=== PATIENT | female | born 1965 | race Caucasian/White ===

== ENCOUNTER 2017-08-24 11:38 | Emergency (ER) | payer OTHER ==
[~2017-08-24] VITALS: Ht 170.2 cm; Wt 98.4 kg
--- OUTSIDE RECORDS SUMMARY | 2017-08-24 11:41 | XMS REPORT ---
[facility] Address Unknown Phone Unavailable Care Team Providers Care Director Biostatistics Name Role Phone Unavailable Unavailable Problems This patient has no known problems. Allergies, Adverse Reactions, Alerts This patient has no known allergies or adverse reactions. Medications This patient has no known medications. Encounters Start Date/Time End Date/Time Encounter Type Admission Type Attending [facility] Care Department Encounter ID 2017-10-04 00:00:00 2017-10-04 00:00:00 Outpatient [facility] [id number] 2017-07-20 08:43:25 2017-07-20 08:43:25 Outpatient [facility] [id number] 2017-07-17 00:00:00 2017-07-17 00:00:00 Outpatient [facility] [id number] 2017-07-16 11:21:32 2017-07-16 11:21:32 Outpatient [facility] [id number] 2017-07-16 09:39:09 2017-07-16 09:39:09 Outpatient [facility] [id number] 2017-07-15 13:46:27 2017-07-15 13:46:27 Outpatient [facility] [id number] 2017-07-15 09:20:00 2017-07-15 09:20:00 Emergency [facility] [id number] 2017-07-15 00:00:00 2017-07-15 00:00:00 Outpatient [facility] [id number] 2017-07-01 13:26:56 2017-07-01 13:26:56 Outpatient [facility] [id number] 2017-06-21 08:04:38 2017-06-21 08:04:38 Outpatient [facility] [id number] 2017-04-16 09:59:08 2017-04-16 09:59:08 Outpatient [facility] [id number] 2017-04-15 07:48:39 2017-04-15 07:48:39 Outpatient [facility] [id number] 2017-04-09 08:21:44 2017-04-09 08:21:44 Outpatient [facility] [id number] 2017-03-18 12:50:01 2017-03-18 12:50:01 Outpatient [facility] [id number] 2017-03-15 13:09:14 2017-03-15 13:09:14 Outpatient [facility] [id number] 2017-03-15 08:17:08 2017-03-15 08:17:08 Outpatient [facility] [id number] 2017-02-18 14:00:30 2017-02-18 14:00:30 Outpatient [facility] [id number] 2017-02-18 09:17:21 2017-02-18 09:17:21 Outpatient [facility] [id number] 2017-02-15 00:00:00 2017-02-15 00:00:00 Outpatient [facility] [id number] 2017-02-08 00:00:00 2017-02-08 00:00:00 Outpatient [facility] [id number] 2017-02-04 00:00:00 2017-02-04 00:00:00 Outpatient [facility] [id number] 2017-01-18 00:00:00 2017-01-18 00:00:00 Outpatient [facility] [id number] 2017-01-14 00:00:00 2017-01-14 00:00:00 Outpatient [facility] [id number] 2017-01-11 08:02:41 2017-01-11 08:02:41 Outpatient [facility] [id number] 2017-01-02 23:08:33 2017-01-02 23:08:33 Emergency [facility] [id number] 2017-01-02 22:41:50 2017-01-02 22:41:50 Emergency [facility] [id number] 2017-01-02 19:36:14 2017-01-02 19:36:14 Emergency [facility] [id number] 2017-01-02 15:09:40 2017-01-02 15:09:40 Emergency [facility] [id number] 2016-12-14 10:30:34 2016-12-14 10:30:34 Outpatient [facility] [id number] 2016-11-16 10:18:28 2016-11-16 10:18:28 Outpatient [facility] [id number] 2016-11-16 08:21:07 2016-11-16 08:21:07 Outpatient [facility] [id number] 2016-10-16 14:07:08 2016-10-16 14:07:08 Outpatient [facility] [id number]
[2017-08-24] MEDS ORDERED: SODIUM CHLORIDE 0.9% 1000ML 1,000 ML IV STA (11:48)
[2017-08-24] MEDS ORDERED: ONDANSETRON HCL INJ 2 MG/ML VIAL IV STA (11:48)
[2017-08-24] MEDS ORDERED: DIAZEPAM INJ 5 MG/ML 2 ML IV ONE (12:00)
[2017-08-24] MEDS ORDERED: MORPHINE SULFATE 2 MG/ML SYR IV STA (12:14)
[2017-08-24 12:18] LABS: BASOPHILS % 0.6 % (0.0-1.0); EOSINOPHILS # (AUTO) 0.1 (0.0-0.4); EOSINOPHILS % 0.8 % (0.0-6.0); HEMATOCRIT 41.2 % (34.2-44.1); LYMPHOCYTES % 15.4 % (18.0-39.1); MEAN CORPUSCULAR HEMOGLOBIN 33.3 pg (28-32); MEAN CORPUSCULAR VOLUME 98.1 fL (81-99); MONOCYTES # (AUTO) 0.2 (0.2-0.8); MONOCYTES % 3.7 % (4.4-11.3); NEUTROPHILS # (AUTO) 5.1 (2.1-6.9); NEUTROPHILS % 79.2 % (38.7-80.0); PLATELET COUNT 223 x10e3/uL (140-360)
[2017-08-24 12:33] LABS: INR 1.17
[2017-08-24 12:34] LABS: PARTIAL THROMBOPLASTIN TIME 28.1 seconds (23.8-35.5)
[2017-08-24 12:44] LABS: ALANINE AMINOTRANSFERASE 57 IU/L (0-55); ALBUMIN/GLOBULIN RATIO 1.3 (0.8-2.0); ALKALINE PHOSPHATASE 59 IU/L (40-150); ANION GAP 13.1 mmol/L (8-16); BLOOD UREA NITROGEN 10 mg/dL (7-26); BUN/CREATININE RATIO 13 (6-25); CALCIUM 9.5 mg/dL (8.4-10.2); CARBON DIOXIDE 21 mmol/L (22-29); CHLORIDE 110 mmol/L (98-107); CREATINE KINASE 173 IU/L (29-168); EST GLOMERULAR FILTRATION RATE > 60 ML/MIN (60-); GLUCOSE 118 mg/dL (74-118); POTASSIUM 4.1 mmol/L (3.5-5.1); SODIUM 140 mmol/L (136-145)
--- NOTE | 2017-08-24 13:17 | Diagnostic Imaging Report ---
EXAMINATION: Head CT HISTORY: Dizziness, TIA versus CVA COMPARISON: Brain MRI on 02/21/2010 TECHNIQUE: Multidetector axial images were obtained without contrast from the foramen magnum to the vertex . The images were reconstructed using brain and bone algorithms. Thin section brain images were reformatted into coronal and sagittal planes. Intravenous contrast: None. Motion/streaking artifact limits the evaluation of the skull base and posterior cranial fossa. FINDINGS: Parenchyma: 1. No abnormal densities. 2. No mass or hemorrhage. No CT evidence of acute territorial vascular insult. Extra-axial spaces:No abnormal density. No extra-axial fluid collections Brain volume: Normal for age. Ventricles: No hydrocephalus or displacement. Arteries: No density suggestive of thrombus. Dural sinuses: No abnormal density. Extra-axial spaces: No abnormal density. Foramen magnum: No mass, Chiari malformation, or basilar invagination. Sella: No obvious mass. Paranasal/mastoid sinuses: Opacification of the right mastoid air cells and middle ear may be related to chronic inflammatory process or effusion. Skull/Scalp: No lytic or blastic lesions. No fractures. IMPRESSION: Normal head CT. Signed by: Dr. Delfina Negrete M.D. on 08/24/2017 1:13 PM
[2017-08-24] MEDS ORDERED: MECLIZINE HCL 12.5 MG TAB PO ONE (13:30)
[2017-08-24 16:05] LABS: BILIRUBIN,URINE NEGATIVE (NEGATIVE); CLARITY,URINE HAZY (CLEAR); COLOR,URINE YELLOW (YELLOW); KETONES,URINE NEGATIVE (NEGATIVE); LEUKOCYTE ESTERASE ,URINE 1+ (NEGATIVE); NITRITE,URINE NEGATIVE (NEGATIVE); PROTEIN,URINE DIPSTICK TRACE (NEGATIVE); URINE UROBILINOGEN 0.2 mg/dL (0.2 - 1)
[2017-08-24 16:09] LABS: BACTERIA,URINE FEW /HPF; EPITHELIAL CELLS,URINE FEW /LPF
[2017-08-24 16:14] VITALS: BP 121/79
== END 2017-08-24 16:23 | disposition home or self-care (01) ==
LOC: ER 11:38
DX: R42 Dizziness and giddiness (principal); R11.2 Nausea with vomiting, unspecified; N39.0 Urinary tract infection, site not specified
CPT/HCPCS: 36415; 70450; 80053; 81001; 82550; 82553; 84484; 85025; 85610; 85730; 93005; 99284; J2270; J2405; J7030